=== PATIENT | female | born 1980 ===

== ENCOUNTER 2017-10-29 14:01 | Emergency (ER) | payer OTHER ==
[2017-10-29 14:44] VITALS: BP 137/79
[2017-10-29] MEDS ORDERED: MOTRIN PO ONE (16:10)
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
== END 2017-10-29 16:22 | disposition home or self-care (01) ==
LOC: ED 14:01
DX: M54.5 Low back pain (principal); M79.605 Pain in left leg; M79.602 Pain in left arm; V89.2XXA Person injured in unspecified motor-vehicle accident, traffic, initial encounter; Y93.89 Activity, other specified; Y92.89 Other specified places as the place of occurrence of the external cause; Y99.8 Other external cause status
CPT/HCPCS: 99282

== ENCOUNTER 2019-10-21 15:28 | Emergency (ER) | payer BC ==
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
[2019-10-21 16:28] VITALS: BP 137/86
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
== END 2019-10-21 21:30 | disposition left against medical advice (07) ==
LOC: ED 15:28
DX: S39.012A Strain of muscle, fascia and tendon of lower back, initial encounter (principal); V89.2XXA Person injured in unspecified motor-vehicle accident, traffic, initial encounter; Y93.89 Activity, other specified; Y92.410 Unspecified street and highway as the place of occurrence of the external cause; Y99.8 Other external cause status
CPT/HCPCS: 72100